=== PATIENT | male | born 1930 | race Caucasian/White ===

== ENCOUNTER → 2019-05-08 | Outpatient (CLI) | payer OTHER, MEDICARE ==
[2019-05-08 16:01] LABS: HEMATOCRIT 40.7 % (42.0-52.0); HEMOGLOBIN 13.3 gm/dL (14.0-18.0); MCH 30.7 pg (26.0-34.0); MCHC 32.6 g/dL (28.0-37.0); MCV 94.3 fL (80.0-100.0); RBC 4.31 mil/uL (4.50-6.00); RDW 14.7 % (10.5-14.5); WBC 7.4 thou/uL (4.0-11.0)
[2019-05-08 16:15] LABS: INR 3.6; PROTIME 37.7 Seconds (9.3-11.4)
== END ==
LOC: LABMALL 15:33
PROVIDERS: Podiatrist Foot & Ankle Surgery
DX: S91.102A Unspecified open wound of left great toe without damage to nail, initial encounter (principal); M71.22 Synovial cyst of popliteal space [Baker], left knee; M25.462 Effusion, left knee; X58.XXXA Exposure to other specified factors, initial encounter; Y93.89 Activity, other specified; Y92.89 Other specified places as the place of occurrence of the external cause; Y99.8 Other external cause status

== ENCOUNTER → 2019-06-20 | Outpatient (CLI) | payer OTHER, MEDICARE | LOC: HYPER 17:43 | DX: L97.522 Non-pressure chronic ulcer of other part of left foot with fat layer exposed (principal); L97.512 Non-pressure chronic ulcer of other part of right foot with fat layer exposed; I73.9 Peripheral vascular disease, unspecified; L84 Corns and callosities; G60.9 Hereditary and idiopathic neuropathy, unspecified; B35.1 Tinea unguium; R60.0 Localized edema; Z91.81 History of falling ==

== ENCOUNTER → 2019-06-20 | Outpatient (CLI) | payer OTHER, MEDICARE | LOC: HYPER 02:41 | DX: L97.522 Non-pressure chronic ulcer of other part of left foot with fat layer exposed (principal); L97.511 Non-pressure chronic ulcer of other part of right foot limited to breakdown of skin; I73.9 Peripheral vascular disease, unspecified; L84 Corns and callosities; G60.9 Hereditary and idiopathic neuropathy, unspecified; B35.1 Tinea unguium; R60.0 Localized edema; Z91.81 History of falling ==